=== PATIENT | female | born 1995 | race Caucasian/White ===

== ENCOUNTER 2017-07-22 19:44 | Emergency (ER) | payer OTHER ==
[~2017-07-22] VITALS: Ht 157.4 cm; Wt 77.1 kg
[~2017-07-22 19:44] MED LIST: BROMFED 12 MG-11 CER; CHEWABLE VITE W1 CTB PO; CHLORASEPTIC MM; DELTASONE10 MG; LEVAQUIN750 MG PO; MOTRIN400 MG PO; MOTRIN800 MG PO; MULTIVITAMIN WI1 CTB PO; NKHM; PERCOCET 325 MG1 TA5 PO; PRENA1 CHEW1 CT1 PO; PRENATAL VITAMI1 TA9 PO; PRENATAL1 TA1 PO; TYLENOL500 MG PO; ULTRAM50 MG PO; ZITHROMAX250 MG PO; [UNRECOGNIZED DRUG - OTHER]
[2017-07-22 19:49] VITALS: BP 118/66
[2017-07-22] MEDS ORDERED: AMOXICILLIN500 M2 PO (20:05)
== END 2017-07-22 20:14 | disposition home or self-care (01) ==
LOC: ED 19:44
DX: O99.611 Diseases of the digestive system complicating pregnancy, first trimester (principal); K08.89 Other specified disorders of teeth and supporting structures; Z79.899 Other long term (current) drug therapy

== ENCOUNTER 2020-01-02 13:29 | Emergency (ER) | payer OTHER ==
[~2020-01-02] VITALS: Ht 157.4 cm; Wt 77.1 kg
[~2020-01-02 13:29] MED LIST changes: +AMOXICILLIN500 M2 PO
[2020-01-02 13:56] VITALS: BP 107/70
[2020-01-02 14:50] LABS: BASO % 0.2 % (0.0-1.0); EOS % 0.2 % (1.0-4.0); HEMATOCRIT 35.5 % (37.0-47.0); LYMPH % 9.9 % (27.0-41.0); MEAN CELL VOLUME 85.1 fl (81.0-99.0); MEAN CORPUSCULAR HGB 26.4 pg (27.0-31.0); MEAN PLATELET VOLUME 12.4 fl (9.6-12.3); MONO % 10.3 % (3.0-9.0); NEUT # 7.6 10*3/uL (2.3-7.9); NEUT % 79.1 % (47.0-73.0); PLATELET COUNT AUTOMATED 142 10*3/uL (130-400); RED BLOOD COUNT 4.17 10*6/uL (4.10-5.10); RED CELL DISTRI WIDTH 14.8 % (0-14.5); WHITE BLOOD COUNT 9.6 10*3/uL (4.8-10.8)
[2020-01-02 15:01] LABS: BUN 8 mg/dl (7-24); CHLORIDE 103 mmol/L (98-107); POTASSIUM 3.8 mmol/L (3.5-5.1); SODIUM 134 mmol/L (136-145)
[2020-01-02] MEDS ORDERED: AUGMENTIN 875875 MG PO (16:45)
[2020-01-02] MEDS ORDERED: MEDROL DOSEPAK4 MG PO (16:45)
== END 2020-01-02 16:51 | disposition home or self-care (01) ==
LOC: ED 13:29
PROVIDERS: Emergency Medicine
DX: J03.90 Acute tonsillitis, unspecified (principal); F17.200 Nicotine dependence, unspecified, uncomplicated; Z79.2 Long term (current) use of antibiotics; Z79.899 Other long term (current) drug therapy; Z90.49 Acquired absence of other specified parts of digestive tract

== ENCOUNTER → 2020-11-11 | Outpatient (CLI) | payer OTHER ==
[~2020-11-11] MED LIST changes: +AUGMENTIN 875875 MG PO; +MEDROL DOSEPAK4 MG PO
== END | disposition home or self-care (01) ==
LOC: US 07:27
PROVIDERS: ATTEND Nurse Practitioner Women's Health
DX: N92.0 Excessive and frequent menstruation with regular cycle (principal); N94.6 Dysmenorrhea, unspecified